=== PATIENT | female | born 1990 | race American Indian/Alaskan Native ===

== ENCOUNTER 2018-06-02 10:37 | Emergency (ER) | payer MEDICAID, OTHER ==
[2018-06-02 10:44] VITALS: BP 109/82
[2018-06-02] MEDS ORDERED: Lactated Ringers 1,000 ML IV ONE ×2 (10:58→11:29)
[2018-06-02] MEDS ORDERED: diphenhydrAMINE 50 MG/ML SDV IVPUSH ONE (10:58)
[2018-06-02] MEDS ORDERED: Ketorolac 30 MG/ML SDV IVPUSH ONE (10:58)
[2018-06-02] MEDS ORDERED: cefTRIAXone 2 GM in Sodium Chloride 0.9% 100 ML IV ONE (11:20)
[2018-06-02 11:21] LABS: ANION GAP 17.4; CHLORIDE,CL 98 mmol/L (101-111); SODIUM,NA 135 mmol/L (135-145)
[2018-06-02] MEDS ORDERED: cefTRIAXone 2 GM in Sodium Chloride 0.9% 50 ML IV ONE (11:23)
--- NOTE | 2018-06-02 11:31 | EDM.PDOC ---
ED HPI GENERAL MEDICAL PROBLEM - General Chief Complaint: Genitourinary Problem Stated Complaint: KIDNEY PAIN Time Seen by Provider: 06/02/18 10:55 Source of Information: Reports: Patient History Limitations: Reports: No Limitations - History of Present Illness INITIAL COMMENTS - FREE TEXT/NARRATIVE: Patient comes emergency Department today with complaints of right flank pain. She has noticed over the past month that her urine has been very foul-smelling increased amount of urination and cloudy in appearance. Over the past couple of days she has noticed right flank pain. Subjective fever and chills. Nausea without vomiting. No change in vaginal discharge. No dyspareunia. No diarrhea. No black or tarry stools. No abdominal pain. No chest pain or shortness of breath or difficulty breathing. 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 Musculoskeletal History: Reports: None Neurological History: Reports: None Psychiatric History: Reports: None Endocrine/Metabolic History: Reports: None Hematologic History: Reports: None Immunologic History: Reports: None Oncologic (Cancer) History: Reports: None Dermatologic History: Reports: None - Infectious Disease History Infectious Disease History: Reports: Chicken Pox - Past Surgical History Head Surgeries/Procedures: Reports: None Social & Family History - Family History Family Medical History: Noncontributory - Tobacco Use Smoking Status *Q: Current Every Day Smoker Years of Tobacco use: 3 Packs/Tins Daily: 1 - Caffeine Use Caffeine Use: Reports: Coffee, Energy Drinks, Soda, Tea - Recreational Drug Use Recreational Drug Use: No ED ROS GENERAL - Review of Systems Review Of Systems: ROS reveals no pertinent complaints other than HPI. ED EXAM, GI/ABD - Physical Exam Exam: See Below Exam Limited By: No Limitations General Appearance: Alert Eyes: Bilateral: EOMI Head: Atraumatic Neck: Normal Inspection Respiratory/Chest: No Respiratory Distress, Lungs Clear, No Accessory Muscle Use Cardiovascular: Normal Peripheral Pulses, Regular Rate, Rhythm GI/Abdominal Exam: Normal Bowel Sounds, Soft, Non-Tender Back Exam: Normal Inspection, Full Range of Motion Extremities: Normal Inspection, Normal Range of Motion Neurological: Alert, Oriented, Normal Cognition, No Motor/Sensory Deficits Psychiatric: Normal Affect, Normal Mood Skin Exam: Dry, Intact, Normal Color, Cool, Pallor Lymphatic: No Adenopathy Course - Vital Signs Last Recorded V/S: Last Vital Signs Temp 36.3 C 06/02/18 10:40 Pulse 148 H 06/02/18 10:40 Resp 20 06/02/18 10:40 BP 109/82 06/02/18 10:40 Pulse Ox 97 06/02/18 10:40 - Orders/Labs/Meds Orders: Active Orders 24 hr Category Date Time Status CHLAMYDIA AND GONORRHEA BY TMA Stat Lab 06/02/18 10:43 Received CULTURE BLOOD [BC] Stat Lab 06/02/18 10:53 Received CULTURE URINE [RM] Stat Lab 06/02/18 10:43 Received Lactated Ringers [Ringers, Lactated] 1,000 ml Med 06/02/18 11:29 Active IV .BOLUS cefTRIAXone [Rocephin] 2 gm Med 06/02/18 11:23 Active Sodium Chloride 0.9% [Normal Saline] 50 ml IV ONETIME Medication Orders Ceftriaxone Sodium 2 gm/ (Sodium Chloride) 50 mls @ 50 mls/hr IV ONETIME ONE Stop: 06/02/18 12:22 Last Admin: 06/02/18 11:30 Dose: 50 mls/hr Lactated Ringer's (Ringers, Lactated) 1,000 mls @ 1,000 mls/hr IV .BOLUS ONE Stop: 06/02/18 12:28 Last Admin: 06/02/18 11:43 Dose: 1,000 mls/hr Labs: Laboratory Tests 06/02/18 06/02/18 06/02/18 Range/Units 10:43 10:43 10:43 WBC (5.0-10.0) 10^3/uL RBC (4.2-5.4) 10^6/uL Hgb (12.0-16.0) g/dL Hct (37.0-47.0) % MCV (80-100) fL MCH (27.0-34.0) pg MCHC (33.0-35.0) g/dL Plt Count (150-450) 10^3/uL Neut % (Auto) (42.2-75.2) % Lymph % (Auto) (20.5-50.1) % [place] % (Auto) (2-8) % Eos % (Auto) (1.0-3.0) % Baso % (Auto) (0.0-1.0) % Sodium (135-145) mmol/L Potassium (3.6-5.0) mmol/L Chloride (101-111) mmol/L Carbon Dioxide (21.0-31.0) mmol/L Anion Gap BUN (7-18) mg/dL Creatinine (0.6-1.3) mg/dL Est Cr Clr Drug Dosing mL/min Estimated GFR (MDRD) BUN/Creatinine Ratio Glucose (74-105) mg/dL Lactic Acid (0.5-2.2) mmol/L Calcium (8.4-10.2) mg/dl Total Bilirubin (0.2-1.0) mg/dL AST (10-42) IU/L ALT (10-60) IU/L Alkaline Phosphatase (42-121) IU/L Total Protein (6.7-8.2) g/dl Albumin (3.2-5.5) g/dl Globulin Albumin/Globulin Ratio Urine Color Yellow (YELLOW) Urine Appearance Cloudy (CLEAR) Urine pH 6.0 (5.0-9.0) Ur Specific [place] >= 1.030 (1.005-1.030) Urine Protein >=300 H (NEGATIVE) Urine Glucose (UA) Negative (NEGATIVE) Urine Ketones Negative (NEGATIVE) Urine Occult Blood Large H (NEGATIVE) Urine Nitrite Positive H (NEGATIVE) Urine Bilirubin Negative (NEGATIVE) Urine Urobilinogen 0.2 (0.2-1.0) mg/dL Ur Leukocyte Esterase Moderate H (NEGATIVE) Urine RBC 20-30 H /HPF Urine WBC >100 H (0-5/HPF) /HPF Ur Epithelial Cells Moderate H /HPF Urine Bacteria Moderate H (0-FEW/HPF) /HPF Urine Mucus Few H /LPF Urine HCG, Qual Negative Urine Opiates Screen Negative (NEGATIVE) Ur Oxycodone Screen Positive H (NEGATIVE) Urine Methadone Screen Negative (NEGATIVE) Ur Barbiturates Screen Negative (NEGATIVE) U Tricyclic Antidepress Negative (NEGATIVE) Ur Phencyclidine Scrn Negative (NEGATIVE) Ur Amphetamine Screen Positive H (NEGATIVE) U Methamphetamines Scrn Positive H (NEGATIVE) Urine MDMA Screen Negative (NEGATIVE) U Benzodiazepines Scrn Negative (NEGATIVE) Urine Cocaine Screen Negative (NEGATIVE) U Marijuana (THC) Screen Negative (NEGATIVE) 06/02/18 06/02/18 06/02/18 Range/Units 10:53 10:53 10:53 WBC 18.4 H (5.0-10.0) 10^3/uL RBC 5.51 H (4.2-5.4) 10^6/uL Hgb 16.3 H D (12.0-16.0) g/dL Hct 47.4 H (37.0-47.0) % MCV 86.0 D (80-100) fL MCH 29.6 (27.0-34.0) pg MCHC 34.4 (33.0-35.0) g/dL Plt Count 310 (150-450) 10^3/uL Neut % (Auto) 82.8 H (42.2-75.2) % Lymph % (Auto) 7.7 L (20.5-50.1) % [place] % (Auto) 9.3 H (2-8) % Eos % (Auto) 0.1 L (1.0-3.0) % Baso % (Auto) 0.1 (0.0-1.0) % Sodium 135 (135-145) mmol/L Potassium 3.4 L (3.6-5.0) mmol/L Chloride 98 L (101-111) mmol/L Carbon Dioxide 23.0 (21.0-31.0) mmol/L Anion Gap 17.4 BUN 6 L (7-18) mg/dL Creatinine 0.8 (0.6-1.3) mg/dL Est Cr Clr Drug Dosing 84.70 mL/min Estimated GFR (MDRD) > 60 BUN/Creatinine Ratio 7.50 Glucose 99 (74-105) mg/dL Lactic Acid 1.0 (0.5-2.2) mmol/L Calcium 9.8 (8.4-10.2) mg/dl Total Bilirubin 1.0 (0.2-1.0) mg/dL AST 45 H (10-42) IU/L ALT 61 H (10-60) IU/L Alkaline Phosphatase 83 (42-121) IU/L Total Protein 10.1 H (6.7-8.2) g/dl Albumin 5.0 (3.2-5.5) g/dl Globulin 5.1 Albumin/Globulin Ratio 0.98 Urine Color (YELLOW) Urine Appearance (CLEAR) Urine pH (5.0-9.0) Ur Specific [place] (1.005-1.030) Urine Protein (NEGATIVE) Urine Glucose (UA) (NEGATIVE) Urine Ketones (NEGATIVE) Urine Occult Blood (NEGATIVE) Urine Nitrite (NEGATIVE) Urine Bilirubin (NEGATIVE) Urine Urobilinogen (0.2-1.0) mg/dL Ur Leukocyte Esterase (NEGATIVE) Urine RBC /HPF Urine WBC (0-5/HPF) /HPF Ur Epithelial Cells /HPF Urine Bacteria (0-FEW/HPF) /HPF Urine Mucus /LPF Urine HCG, Qual Urine Opiates Screen (NEGATIVE) Ur Oxycodone Screen (NEGATIVE) Urine Methadone Screen (NEGATIVE) Ur Barbiturates Screen (NEGATIVE) U Tricyclic Antidepress (NEGATIVE) Ur Phencyclidine Scrn (NEGATIVE) Ur Amphetamine Screen (NEGATIVE) U Methamphetamines Scrn (NEGATIVE) Urine MDMA Screen (NEGATIVE) U Benzodiazepines Scrn (NEGATIVE) Urine Cocaine Screen (NEGATIVE) U Marijuana (THC) Screen (NEGATIVE) Meds: Medications Generic Name Dose Route Start Last Admin Trade Name Freq PRN Reason Stop Dose Admin Ceftriaxone Sodium 2 gm/ 50 mls @ 50 mls/hr 06/02/18 11:23 06/02/18 11:30 Sodium Chloride IV 06/02/18 12:22 50 mls/hr ONETIME ONE Administration Lactated Ringer's 1,000 mls @ 1,000 mls/hr 06/02/18 11:29 06/02/18 11:43 Ringers, Lactated IV 06/02/18 12:28 1,000 mls/hr .BOLUS ONE Administration Discontinued Medications Generic Name Dose Route Start Last Admin Trade Name Freq PRN Reason Stop Dose Admin Diphenhydramine HCl 25 mg 06/02/18 10:58 06/02/18 11:06 Benadryl IVPUSH 06/02/18 10:59 25 mg ONETIME ONE Administration Lactated Ringer's 1,000 mls @ 1,000 mls/hr 06/02/18 10:58 06/02/18 11:06 Ringers, Lactated IV 06/02/18 11:57 1,000 mls/hr .BOLUS ONE Administration Ceftriaxone Sodium 2 gm/ 100 mls @ 200 mls/hr 06/02/18 11:20 Sodium Chloride IV 06/02/18 11:49 ONETIME ONE Ketorolac Tromethamine 30 mg 06/02/18 10:58 06/02/18 11:06 Toradol IVPUSH 06/02/18 10:59 30 mg ONETIME ONE Administration - Re-Assessments/Exams Free Text/Narrative Re-Assessment/Exam: 06/02/18 11:29 IV LR 1 L wide open. Ketorolac 30 mg IV push. Benadryl 25 mg IV push. 06/02/18 11:30 Her urine is quite infectious. A urine culture was added. 2 g Rocephin IV piggyback. Urine culture pending. Mildly elevated white blood cell count of 18. 06/02/18 12:04 Patient feels much better after the above therapy. Resting comfortably on the cart. We'll send her home with cephalexin and Zofran. Rest and hydration. If she is unable to keep her antibiotics down to make it worse so she may return although she is not actively nauseated and has not really had much vomiting the past couple of days to be okay. Start antibiotics tomorrow. She is comfortable with this plan questions are answered. Her heart rate improved and was able to void while in the ED another time. 06/02/18 12:05 Departure - Departure Time of Disposition: 12:03 Disposition: Home, Self-Care 01 Clinical Impression: Pyelonephritis - Discharge Information Instructions: Pyelonephritis, Adult, [id number] Forms: ED Department Discharge Additional Instructions: Lots of fluids over the next few days. Tylenol and or Ibuprofen as needed pain fever discomfort. Cephalexin 1 tablet 4 times a day for the next 7 days. Start tomorrow RX given to the patient. Zofran, 1 tablet every 6 hrs as needed for nausea or vomiting. If you are unable to keep your medications down especially your anti-biotics you may need hospitalization until improvement. Return to the ED if new or worsening symptoms. Follow up with PCP in the next 4-6 days if not improving sooner if worse. - My Orders Last 24 Hours: My Active Orders 06/02/18 10:43 CHLAMYDIA AND GONORRHEA BY TMA Stat CULTURE URINE [RM] Stat 06/02/18 10:53 CULTURE BLOOD [BC] Stat 06/02/18 11:23 cefTRIAXone [Rocephin] 2 gm Sodium Chloride 0.9% [Normal Saline] 50 ml IV ONETIME 06/02/18 11:29 Lactated Ringers [Ringers, Lactated] 1,000 ml IV .BOLUS - Assessment/Plan Last 24 Hours: My Active Orders 06/02/18 10:43 CHLAMYDIA AND GONORRHEA BY TMA Stat CULTURE URINE [RM] Stat 06/02/18 10:53 CULTURE BLOOD [BC] Stat 06/02/18 11:23 cefTRIAXone [Rocephin] 2 gm Sodium Chloride 0.9% [Normal Saline] 50 ml IV ONETIME 06/02/18 11:29 Lactated Ringers [Ringers, Lactated] 1,000 ml IV .BOLUS Assessment:: pyelonephritis dehydration Plan: Lots of fluids over the next few days. Tylenol and or Ibuprofen as needed pain fever discomfort. Cephalexin 1 tablet 4 times a day for the next 7 days. Start tomorrow RX given to the patient. Zofran, 1 tablet every 6 hrs as needed for nausea or vomiting. If you are unable to keep your medications down especially your anti-biotics you may need hospitalization until improvement. Return to the ED if new or worsening symptoms. Follow up with PCP in the next 4-6 days if not improving sooner if worse.
== END 2018-06-02 12:22 | disposition home or self-care (01) ==
LOC: DL.ED 10:37
DX: N12 Tubulo-interstitial nephritis, not specified as acute or chronic (principal); E86.0 Dehydration; F17.210 Nicotine dependence, cigarettes, uncomplicated; B96.20 Unspecified Escherichia coli [E. coli] as the cause of diseases classified elsewhere
CPT/HCPCS: 36415; 80053; 80305; 81001; 81025; 83605; 85025; 87040; 87077; 87086; 87088; 87186; 87491; 87591; 96361; 96374; 96375; 99284; J0696; J1200; J1885; J7050; J7120

== ENCOUNTER 2020-11-25 10:34 | Emergency (ER) | payer MEDICAID ==
[2020-11-25] MEDS ORDERED: Tetracaine HCl/PF 0.5% 4 ML Bottle EYELF ONE (11:22)
[2020-11-25] MEDS ORDERED: Fluorescein 1 MG Ophth Strip EYELF ONE (11:23)
--- NOTE | 2020-11-25 11:56 | EDM.PDOC ---
ED HPI GENERAL MEDICAL PROBLEM - General Chief Complaint: Eye Problems Stated Complaint: [id number] SOMETHING WRONG WITH EYE Time Seen by Provider: 11/25/20 10:40 Source of Information: Reports: Patient History Limitations: Reports: No Limitations - History of Present Illness INITIAL COMMENTS - FREE TEXT/NARRATIVE: 30 y/o F c/o L eye pn. Pt states she awoke with the eye pain yesterda morning and it has progressively gotten worse. The pain is a 4/10, sharp, non radiating. No known trauma to the eye. Has had pink eye in the past. Denies fever, cough, chills, drugs, etoh. Pn does not affect her vision. No known eye drainage Onset: Gradual Duration: Day(s): Location: Reports: Head Quality: Reports: Sharp Severity: Mild Improves with: Reports: None Worsens with: Reports: None Left Eye Pain Score (Numeric/FACES): 10 - Related Data Allergies Allergy/AdvReac Type Severity Reaction Status Date / Time No Known Allergies Allergy Verified 06/02/18 10:39 Home Meds: Home Meds Acetaminophen 500 mg PO ASDIRECTED PRN 11/08/14 [History] Past Medical History - Past Health History Medical/Surgical History: Denies Medical/Surgical History Other HEENT History: lazy eye surgury Cardiovascular History: Reports: None Respiratory History: Reports: None Gastrointestinal History: Reports: None Genitourinary History: Reports: None 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 Musculoskeletal History: Reports: None Neurological History: Reports: None Psychiatric History: Reports: None Endocrine/Metabolic History: Reports: None Hematologic History: Reports: None Immunologic History: Reports: None Oncologic (Cancer) History: Reports: None Dermatologic History: Reports: None - Infectious Disease History Infectious Disease History: Reports: Chicken Pox - Past Surgical History Head Surgeries/Procedures: Reports: None Social & Family History - Family History Family Medical History: No Pertinent Family History - Tobacco Use Tobacco Use Status *Q: Current Every Day Tobacco User Years of Tobacco use: 13 Packs/Tins Daily: 1 - Caffeine Use Caffeine Use: Reports: Coffee - Recreational Drug Use Recreational Drug Use: Yes 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 ED EXAM GENERAL W FULL EYE - Physical Exam Exam: See Below Exam Limited By: No Limitations General Appearance: Alert Eye Exam: Left Eye: Conjunctival Injection Eyelids: Left: Erythema Extraocular Movements: Bilateral: Intact Pupillary Size: Bilateral: 3 mm Pupillary Reaction: Bilateral: Brisk Ears: Normal External Exam, Normal Canal, Hearing Grossly Normal, Normal TMs Nose: Normal Inspection, Normal Mucosa, No Blood Throat/Mouth: Normal Inspection, Normal Lips, Normal Teeth, Normal Gums, Normal Oropharynx, Normal Voice, No Airway Compromise Respiratory/Chest: No Respiratory Distress, Lungs Clear, Normal Breath Sounds, No Accessory Muscle Use, Chest Non-Tender Cardiovascular: Normal Peripheral Pulses, Regular Rate, Rhythm, No Edema, No Gallop, No JVD, No Murmur, No Rub Course - Vital Signs Last Recorded V/S: Last Vital Signs Temp 97.2 F 11/25/20 10:47 Pulse 79 11/25/20 10:47 Resp 20 11/25/20 10:47 BP 105/77 11/25/20 10:47 Pulse Ox 96 11/25/20 10:47 - Orders/Labs/Meds Meds: Medications Discontinued Medications Generic Name Dose Route Start Last Admin Trade Name Josue PRN Reason Stop Dose Admin Fluorescein Sodium 1 mg 11/25/20 11:23 11/25/20 11:42 Fluorescein 1 Mg Ophth Strip EYELF 11/25/20 11:24 1 mg ONETIME ONE Administration Tetracaine HCl 1 ml 11/25/20 11:22 11/25/20 11:42 Tetracaine Hcl/Pf 0.5% 4 Ml Bottle EYELF 11/25/20 11:23 2 drop ASDIRECTED ONE Administration - Re-Assessments/Exams Free Text/Narrative Re-Assessment/Exam: 11/25/20 12:12 Pt expressed relief in pain after tetracaine eye drop. No visible corneal abrasion after fluorescein stain. The pt likely has pink eye Departure - Departure Time of Disposition: 12:14 Disposition: Home, Self-Care 01 Condition: Fair Clinical Impression: [place] eye Qualifiers: Laterality: left Qualified Code(s): H10.022 - Other mucopurulent co njunctivitis, left eye - Discharge Information *PRESCRIPTION DRUG MONITORING PROGRAM REVIEWED*: Not Applicable *COPY OF PRESCRIPTION DRUG MONITORING REPORT IN PATIENT JOSE: Not Applicable Instructions: Bacterial Conjunctivitis, Adult Forms: ED Department Discharge Additional Instructions: Gentamycin one drop every four hours for 5-7 days. Use tylenol or motrin for pain as needed. If any new symptoms or concerns develop contact your primary care facility or return to the ER. Sepsis Event Note (ED) - Focused Exam Vital Signs: Vital Signs Temp Pulse Resp BP Pulse Ox 11/25/20 10:47 97.2 F 79 20 105/77 96
[2020-11-25 12:56] VITALS: BP 140/86; PULSE 80
== END 2020-11-25 12:34 | disposition home or self-care (01) ==
LOC: DL.ED 10:34
DX: H10.022 Other mucopurulent conjunctivitis, left eye (principal); Z72.0 Tobacco use
CPT/HCPCS: 99283

== ENCOUNTER 2021-05-25 21:18 | Emergency (ER) | payer MEDICAID ==
[2021-05-25] MEDS ORDERED: HYDROmorphone 0.5 MG/0.5 ML Syringe IVPUSH ONE (22:09)
[2021-05-25] MEDS ORDERED: Sodium Chloride 0.9% 1,000 ML IV ONE (22:13)
[2021-05-25] MEDS ORDERED: cefTRIAXone 1 GM, Lidocaine 1% 2.1 ML IM ONE ×2 (22:48)
[2021-05-25] MEDS ORDERED: Doxycycline Monohydrate 100 MG Cap PO ONE (22:48)
[2021-05-25] MEDS ORDERED: Ciprofloxacin 500 MG Tab PO ONE (22:49)
[2021-05-25 23:11] VITALS: BP 127/83; PULSE 96
[2021-05-31 12:47] LABS: C.TRACHOMATIS BY TMA Negative (Negative); N.GONORRHOEAE BY TMA Positive (Negative)
== END 2021-05-25 23:15 | disposition home or self-care (01) ==
LOC: DL.ED 21:18
DX: N30.00 Acute cystitis without hematuria (principal); Z20.2 Contact with and (suspected) exposure to infections with a predominantly sexual mode of transmission
CPT/HCPCS: 81001; 81025; 87086; 87088; 87186; 87491; 87563; 87591; 96372; 96374; 99284; 99284-25; A9270-GY; J0696; J1170; J7030

== ENCOUNTER 2021-06-05 21:43 | Emergency (ER) | payer MEDICAID ==
[2021-06-05 23:29] VITALS: BP 110/67; PULSE 77
== END 2021-06-05 23:18 | disposition home or self-care (01) ==
LOC: DL.ED 21:43
DX: S60.222A Contusion of left hand, initial encounter (principal); W23.1XXA Caught, crushed, jammed, or pinched between stationary objects, initial encounter
CPT/HCPCS: 73130-LT; 99281; 99283-25

== ENCOUNTER 2021-08-20 15:56 | Emergency (ER) | payer MEDICAID, OTHER ==
[2021-08-20 16:07] VITALS: BP 144/128; PULSE 100
[2021-08-20] MEDS ORDERED: Flumazenil 0.1 MG/ML 5 ML MDV IVPUSH PRN (16:08)
[2021-08-20] MEDS: LORazepam 2 MG/ML SDV IM ONE (16:30)
[2021-08-20 16:38] LABS: ANION GAP 11.5 mEq/L (7-13); CHLORIDE,CL 103 mmol/L (98-107); SODIUM,NA 138 mmol/L (136-145)
[2021-08-20 16:39] LABS: ESTIMATED GFR 94 mL/min (>=60)
[2021-08-20 16:42] LABS: AMPHETAMINES,URINE NEGATIVE (NEGATIVE); BARBITURATES,URINE NEGATIVE (NEGATIVE); BENZODIAZEPINE,URINE NEGATIVE (NEGATIVE); MDMA (ECSTASY), URINE NEGATIVE (NEGATIVE); METHADONE,URINE NEGATIVE (NEGATIVE); METHAMPHETAMINES,URINE POSITIVE (NEGATIVE); OPIATES,URINE NEGATIVE (NEGATIVE); OXYCODONE,URINE NEGATIVE (NEGATIVE); PHENCYCLIDINE,URINE NEGATIVE (NEGATIVE); TCA,URINE NEGATIVE (NEGATIVE)
== END 2021-08-20 16:56 ==
LOC: DL.ED 15:56
DX: F11.10 Opioid abuse, uncomplicated (principal)
CPT/HCPCS: 36415; 80053; 80305; 80307; 85025; 96372; 99284; J2060

== ENCOUNTER 2022-10-17 23:10 | Emergency (ER) | payer MEDICAID ==
[2022-10-18 00:16] LABS: ALANINE AMINOTRANSFERASE,ALT 96 U/L (14-59); ALBUMIN 4.3 g/dL (3.4-5.0); ALKALINE PHOSPHATASE 118 U/L (46-116); ANION GAP 12.5 mEq/L (7-13); ASPARTATE AMNIOTRANSFERASE,AST 125 U/L (15-37); BILIRUBIN TOTAL 0.5 mg/dL (0.2-1.0); BLOOD UREA NITROGEN,BUN 10 mg/dL (7-18); BUN/CREATININE RATIO 12.3 (No establ ref range); CALCIUM 9.2 mg/dL (8.5-10.1); CARBON DIOXIDE,CO2 27 mmol/L (21-32); CHLORIDE,CL 101 mmol/L (98-107); CREATININE 0.81 mg/dL (0.55-1.02); GLUCOSE RANDOM 95 mg/dL (70-99); MAGNESIUM 1.9 mg/dL (1.8-2.4); POTASSIUM,K 3.5 mmol/L (3.5-5.1); PROTEIN TOTAL,TP 8.6 g/dL (6.4-8.2); SODIUM,NA 137 mmol/L (136-145)
[2022-10-18 00:18] LABS: WHITE BLOOD CELL COUNT,WBC 6.9 10^3/uL (5.0-10.0)
[2022-10-18 00:19] LABS: BASOPHILS PERCENT AUTO 0.1 % (0.0-1.0); HEMATOCRIT 40.2 % (37.0-47.0); LACTIC ACID 0.8 mmol/L (0.4-2.0); LYMPHOCYTES PERCENT AUTO 23.7 % (20.5-50.1); MEAN CORPUSCULAR HEMOGLOBIN 28.7 pg (27.0-34.0); MEAN CORPUSCULAR HGB CONC 34.8 g/dL (33.0-35.0); MEAN CORPUSCULAR VOLUME 82.4 fL (80-100); MONOCYTES PERCENT AUTO 6.8 % (2-8); NEUTROPHILS PERCENT AUTO 67.4 % (42.2-75.2); PLATELET COUNT,PLT 248 10^3/uL (150-450); RED BLOOD CELL COUNT 4.88 10^6/uL (4.2-5.4)
[2022-10-18 00:20] LABS: C-REACTIVE PROTEIN < 0.2 mg/dL (0.0-0.9); ESTIMATED GFR 100 mL/min (>=60); ETHANOL BLOOD MEDICAL < 3 mg/dL (0)
[2022-10-18 00:21] VITALS: BP 124/103; PULSE 62
== END 2022-10-18 01:08 | disposition home or self-care (01) ==
LOC: DL.ED 23:10
DX: K82.9 Disease of gallbladder, unspecified (principal); F17.210 Nicotine dependence, cigarettes, uncomplicated; Z86.16 Personal history of COVID-19
CPT/HCPCS: 36415; 80053; 80307; 83605; 83690; 83735; 85025; 86140; 99282; 99284

== ENCOUNTER 2022-10-30 08:54 | Emergency (ER) | payer MEDICAID ==
[2022-10-30] MEDS ORDERED: Sodium Chloride 0.9% 10 ML Syringe FLUSH PRN (09:11)
[2022-10-30] MEDS ORDERED: Sodium Chloride 0.9% 1,000 ML IV ONE (09:12)
[2022-10-30] MEDS ORDERED: Ondansetron 4 MG/2 ML SDV IV ONE (09:12)
[2022-10-30] MEDS ORDERED: Famotidine 20 MG/2 ML SDV IVPUSH ONE (09:13)
[2022-10-30] MEDS ORDERED: Ketorolac 30 MG/ML SDV IVPUSH ONE (09:13)
[2022-10-30 09:17] VITALS: BP 127/96; PULSE 74
[2022-10-30 09:23] LABS: BASOPHILS PERCENT AUTO 0.4 % (0.0-1.0); EOSINOPHILS PERCENT AUTO 2.9 % (1.0-3.0); HEMATOCRIT 42.4 % (37.0-47.0); HEMOGLOBIN 14.6 g/dL (12.0-16.0); LYMPHOCYTES PERCENT AUTO 28.7 % (20.5-50.1); MEAN CORPUSCULAR HEMOGLOBIN 28.6 pg (27.0-34.0); MEAN CORPUSCULAR HGB CONC 34.4 g/dL (33.0-35.0); MEAN CORPUSCULAR VOLUME 83.1 fL (80-100); MONOCYTES PERCENT AUTO 9.4 % (2-8); NEUTROPHILS PERCENT AUTO 58.6 % (42.2-75.2); PLATELET COUNT,PLT 255 10^3/uL (150-450); WHITE BLOOD CELL COUNT,WBC 5.5 10^3/uL (5.0-10.0)
[2022-10-30] MEDS ORDERED: HYDROmorphone 0.5 MG/0.5 ML Syringe IVPUSH ONE (09:37)
[2022-10-30 09:39] LABS: ALBUMIN 4.3 g/dL (3.4-5.0); ANION GAP 12.6 mEq/L (7-13); BILIRUBIN TOTAL 0.9 mg/dL (0.2-1.0); BUN/CREATININE RATIO 9.4 (No establ ref range); CALCIUM 9.1 mg/dL (8.5-10.1); CREATININE 0.85 mg/dL (0.55-1.02); EST CRCL DRUG DOSING (CG) 83.57 mL/min; POTASSIUM,K 3.6 mmol/L (3.5-5.1); PROTEIN TOTAL,TP 8.8 g/dL (6.4-8.2)
[2022-10-30 09:56] LABS: APPEARANCE,URINE CLEAR (CLEAR); BILIRUBIN,URINE NEGATIVE (NEGATIVE); COLOR,URINE YELLOW (YELLOW); GLUCOSE,URINE NEGATIVE (NEGATIVE); KETONES,URINE NEGATIVE (NEGATIVE); LEUKOCYTE ESTERASE,URINE NEGATIVE (NEGATIVE); NITRITE,URINE NEGATIVE (NEGATIVE); OCCULT BLOOD,URINE NEGATIVE (NEGATIVE); PH,URINE 6.5 (5.0-9.0); PROTEIN,URINE NEGATIVE (NEGATIVE); UROBILINOGEN,URINE 0.2 mg/dL (0.2-1.0)
== END 2022-10-30 11:26 ==
LOC: DL.ED 08:54
DX: K80.71 Calculus of gallbladder and bile duct without cholecystitis with obstruction (principal); Z86.16 Personal history of COVID-19
CPT/HCPCS: 36415; 76705; 80053; 81003; 83690; 84703; 85025; 96374; 96375; 99284; 99285-25; J1170; J1885; J2405; J3490; J7030

== ENCOUNTER 2023-09-01 23:13 | Emergency (ER) | payer MEDICAID ==
[2023-09-01 23:42] LABS: APPEARANCE,URINE CLOUDY (CLEAR); BILIRUBIN,URINE NEGATIVE (NEGATIVE); COLOR,URINE YELLOW (YELLOW); GLUCOSE,URINE NEGATIVE (NEGATIVE); KETONES,URINE NEGATIVE (NEGATIVE); LEUKOCYTE ESTERASE,URINE TRACE (NEGATIVE); NITRITE,URINE NEGATIVE (NEGATIVE); OCCULT BLOOD,URINE MODERATE (NEGATIVE); PROTEIN,URINE 100 (NEGATIVE); UROBILINOGEN,URINE 0.2 mg/dL (0.2-1.0)
[2023-09-01 23:52] LABS: RBC,URINE 50-75 /HPF (0-5); WBC,URINE 20-30 /HPF (0-5/HPF)
[2023-09-01 23:53] LABS: AMORPHOUS SEDIMENT,URINE FEW /HPF (NOT SEEN); BACTERIA,URINE FEW /HPF (0-FEW/HPF); EPITHELIAL CELLS,URINE FEW /HPF (NOT SEEN); MUCUS,URINE FEW /LPF (NOT SEEN)
[2023-09-02 00:13] LABS: BASOPHILS PERCENT AUTO 0.1 % (0.0-1.0); EOSINOPHILS PERCENT AUTO 2.2 % (1.0-3.0); HEMATOCRIT 38.7 % (37.0-47.0); HEMOGLOBIN 13.1 g/dL (12.0-16.0); LYMPHOCYTES PERCENT AUTO 36.4 % (20.5-50.1); MEAN CORPUSCULAR HEMOGLOBIN 28.7 pg (27.0-34.0); MEAN CORPUSCULAR HGB CONC 33.9 g/dL (33.0-35.0); MEAN CORPUSCULAR VOLUME 84.9 fL (80-100); MONOCYTES PERCENT AUTO 9.1 % (2-8); NEUTROPHILS PERCENT AUTO 52.2 % (42.2-75.2); PLATELET COUNT,PLT 240 10^3/uL (150-450); RED BLOOD CELL COUNT 4.56 10^6/uL (4.2-5.4); WHITE BLOOD CELL COUNT,WBC 8.8 10^3/uL (5.0-10.0)
[2023-09-02] MEDS: Acetaminophen 500 MG Tab PO ONE (00:25)
[2023-09-02 00:30] LABS: A/G RATIO 0.9; ALBUMIN 3.7 g/dL (3.4-5.0); ANION GAP 8.9 mEq/L (7-13); BILIRUBIN TOTAL 0.3 mg/dL (0.2-1.0); BUN/CREATININE RATIO 24.6 (No establ ref range); CALCIUM 8.9 mg/dL (8.5-10.1); CREATININE 0.65 mg/dL (0.55-1.02); EST CRCL DRUG DOSING (CG) 100.21 mL/min; POTASSIUM,K 3.9 mmol/L (3.5-5.1); PROTEIN TOTAL,TP 7.6 g/dL (6.4-8.2)
[2023-09-02 00:35] VITALS: BP 110/72; PULSE 64
[2023-09-02] MEDS: Take Home: Ciprofloxacin HCl 500 MG, 6 Tab Pack PO ONE (01:25)
== END 2023-09-02 01:26 | disposition home or self-care (01) ==
LOC: DL.ED 23:13
DX: N30.01 Acute cystitis with hematuria (principal); Z79.899 Other long term (current) drug therapy; Z86.16 Personal history of COVID-19; Z90.49 Acquired absence of other specified parts of digestive tract
CPT/HCPCS: 36415; 74176; 80053; 81001; 81025; 85025; 99284; A9270